=== PATIENT | female | born 1960 | race Caucasian/White ===

== ENCOUNTER 2018-07-24 12:22 | Day surgery (SDC) | payer OTHER ==
[2018-07-23 09:44] VITALS: BMI 20.5
[~2018-07-24 12:22] MED LIST: LACTATED RINGERS 1,000 ML IV SCH; LIDOCAINE 1% 20 ML VIAL (10MG/ML) FOR IV START INTRADERMA PRN
[2018-07-24 13:14] VITALS: TEMP 97.1
[2018-07-24] MEDS ORDERED: fentaNYL (PF) 50 MCG/ML 2 ML AMP ONE (13:22)
[2018-07-24] MEDS ORDERED: LIDOCAINE 1% INJ 10MG/ML (20 ML MDV) ONE (13:22)
[2018-07-24] MEDS ORDERED: PROPOFOL 10 MG/ML 20 ML VIAL IV ONE (13:22)
--- NOTE | 2018-07-24 13:51 | P.PCN ---
Date of Procedure: 07/24/18 Procedure(s) Performed: Procedure: Esophagogastroduodenoscopy and biopsy. Preoperative diagnosis: Reflux symptoms requiring therapy. Postoperative diagnosis: 1. Sliding hiatal hernia with no obvious esophagitis or complicated reflux disease. 2. Mild antral gastritis. 3. Biopsies obtained from the duodenum, antrum and esophagus. Preparation and sedation: Were provided by anesthesia. Brief clinical history: The patient is a 57-year-old female who is scheduled for this evaluation because of reflux symptoms requiring medical therapy. The patient seems to respond to omeprazole with recurrence of her symptoms off medications. No other alarm symptoms. This evaluation is to assess for complicated reflux disease or other pathology. Procedure: With the patient on her left lateral decubitus position and after informed consent and adequate sedation, I passed the Olympus-GIF H190 video upper endoscope through the cricopharyngeus down the esophagus. GE junction was around 40 cm from the incisors and there was a 2 cm sliding hiatal hernia but no obvious esophagitis or complicated reflux disease. The endoscope was then passed into the stomach which was insufflated with air and inspected in detail including the retroflex view in the cardia. There was some mottling and erythema in the antrum but no ulcers or erosions. Pyloric channel did not show any ulcers. Duodenal bulb, post bulbar area and descending duodenum appeared within normal limits. Because of her symptoms, I obtained biopsies from the duodenum, antrum and esophagus then the endoscope was withdrawn. The patient tolerated the procedure well. Plan: The patient was reassured. Will await biopsy results. She will follow-up with you as planned and I will be happy to see in the future if her symptoms change. 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
[2018-07-24 13:54] VITALS: RESP 18
[2018-07-24 14:13] VITALS: BP 137/74; PULSE 68
== END 2018-07-24 14:12 | disposition home or self-care (01) ==
LOC: ORWHC2ENDO 12:22
DX: K29.50 Unspecified chronic gastritis without bleeding (principal); K21.0 Gastro-esophageal reflux disease with esophagitis; K44.9 Diaphragmatic hernia without obstruction or gangrene; F17.200 Nicotine dependence, unspecified, uncomplicated; Z79.899 Other long term (current) drug therapy
CPT/HCPCS: 88305; 43239; J2001; J3010; J2704

== ENCOUNTER → 2018-08-23 | Outpatient (CLI) | payer OTHER ==
--- NOTE | 2018-08-25 09:48 | MM ---
Reason for exam: screening (asymptomatic). Last mammogram was performed 3 years and 2 months ago. History: Patient is postmenopausal. Family history of breast cancer in maternal grandmother at age 40. Physical Findings: A clinical breast exam by your physician is recommended on an annual basis and results should be correlated with mammographic findings. MG 3D Screening Mammo W/Cad Bilateral CC and MLO view(s) were taken. Prior study comparison: June 17, 2015, bilateral MG screening mammo w CAD. March 23, 2008, bilateral digital screening mammogram. There are scattered fibroglandular densities. There is no discrete abnormality. No significant changes when compared with prior studies. ASSESSMENT: Negative, BI-RAD 1 RECOMMENDATION: Routine screening mammogram of both breasts in 1 year.
== END | disposition home or self-care (01) ==
LOC: RADMAMWWP 08:45
PROVIDERS: ATTEND Family Medicine
DX: Z12.31 Encounter for screening mammogram for malignant neoplasm of breast (principal)
CPT/HCPCS: 77063; 77067

== ENCOUNTER 2019-01-08 11:26 | Observation (INO) | payer OTHER ==
[2019-01-08 11:32] VITALS: RESP 18
[2019-01-08 12:52] LABS: Albumin 4.3 g/dL (3.5-5.0); Calcium 9.6 mg/dL (8.4-10.2); Magnesium 2.3 mg/dL (1.6-2.3); Potassium 4.5 mmol/L (3.5-5.1); Total Bilirubin 0.6 mg/dL (0.2-1.3); Total Protein 7.2 g/dL (6.3-8.2)
[2019-01-08 12:53] LABS: Basophils # (A) 0.1 k/uL (0-0.2); Basophils % (A) 1 %; Eosinophils # (A) 0.3 k/uL (0-0.7); Eosinophils % (A) 6 %; HGB 14.5 gm/dL (11.4-16.0); Lymphocytes # (A) 1.7 k/uL (1.0-4.8); Lymphocytes % (A) 30 %; MCH 30.9 pg (25.0-35.0); MCHC 33.6 g/dL (31.0-37.0); MCV 91.8 fL (80.0-100.0); Mean Platelet Volume 7.8; Monocytes # (A) 0.4 k/uL (0-1.0); Monocytes % (A) 8 %; Neutrophils # (A) 2.9 k/uL (1.3-7.7); Neutrophils % (A) 51 %; Platelet Count 223 k/uL (150-450); RBC 4.69 m/uL (3.80-5.40); RDW 14.6 % (11.5-15.5); WBC 5.6 k/uL (3.8-10.6)
[2019-01-08 12:56] LABS: D-Dimer 0.3 mg/L FEU (<0.60); INR 0.9 (<1.2); Partial Thromboplastin Time 26.2 sec (22.0-30.0); Prothrombin Time 9.9 sec (9.0-12.0)
--- NOTE | 2019-01-08 13:04 | XR ---
EXAMINATION TYPE: XR chest 2V DATE OF EXAM: 01/08/2019 COMPARISON: NONE HISTORY: Shortness of breath TECHNIQUE: Frontal and lateral views of the chest are obtained. FINDINGS: Scattered senescent parenchymal changes noted. Hyperinflation compatible with COPD. No evidence for infiltrate. No evidence for atelectasis. Heart size is stable. Mediastinal structures are stable and grossly unremarkable. No evidence for hilar prominence. Degenerative changes dorsal spine. IMPRESSION: 1. No evidence for acute pulmonary disease.
[2019-01-08] MEDS ORDERED: ASPIRIN 81 MG PO STA (13:40)
--- NOTE | 2019-01-08 15:02 | ED ---
Chest Pain HPI - General Chief Complaint: Chest Pain Stated Complaint: chest pain Time Seen by Provider: 01/08/19 12:26 Source: patient, RN notes reviewed Mode of arrival: ambulatory Limitations: no limitations - History of Present Illness Initial Comments: This is a 58-year-old female who presents with complaints of onset of chest pain and dizziness around 11:00 or just prior today. States the pain was sharp 3/10 severity now send him 0.5/10 in severity she states she did have some sweats. She also states that over last week is had intermittent episodes of sweats with no chest pain shortness of breath. She is a former smoker who just quit. She has no known history of heart disease or lung disease no fevers chills cough or phlegm production. MD Complaint: chest pain - Related Data Home Medications Medication Instructions Recorded Confirmed Varenicline [Chantix Starter Pack] 0.5 mg PO BID 01/08/19 01/08/19 buPROPion HCL [Wellbutrin XL] 300 mg PO DAILY 01/08/19 01/08/19 Allergies Allergy/AdvReac Type Severity Reaction Status Date / Time No Known Allergies Allergy Verified 01/08/19 11:47 Review of Systems ROS Statement: Those systems with pertinent positive or pertinent negative responses have been documented in the HPI. ROS Other: All systems not noted in ROS Statement are negative. Past Medical History Past Medical History: No Reported History History of Any Multi-Drug Resistant Organisms: None Reported Past Surgical History: Tonsillectomy Additional Past Surgical History / Comment(s): ankle surgery Past Anesthesia/Blood Transfusion Reactions: No Reported Reaction Past Psychological History: No Psychological Hx Reported Smoking Status: Current every day smoker Past Alcohol Use History: None Reported Past Drug Use History: Marijuana - Past Family History Mother Family Medical History: No Reported History General Exam - General Exam Comments Initial Comments: This a well-developed well-nourished awake alert oriented 3 female Limitations: no limitations General appearance: alert, anxious Head exam: Present: atraumatic, normocephalic, normal inspection Eye exam: Present: normal appearance, PERRL, EOMI. Absent: scleral icterus, conjunctival injection, periorbital swelling ENT exam: Present: normal exam, mucous membranes moist Neck exam: Present: full ROM, other (No stridor JVD or bruits). Absent: tenderness, meningismus, lymphadenopathy Respiratory exam: Present: normal lung sounds bilaterally. Absent: respiratory distress, wheezes, rales, rhonchi, stridor Cardiovascular Exam: Present: regular rate, normal rhythm, normal heart sounds. Absent: systolic murmur, diastolic murmur, rubs, gallop, clicks GI/Abdominal exam: Present: soft, normal bowel sounds. Absent: distended, tenderness, guarding, rebound, rigid Extremities exam: Present: normal inspection, full ROM, normal capillary refill. Absent: tenderness, pedal edema, joint swelling, calf tenderness Back exam: Present: normal inspection Neurological exam: Present: alert, oriented X3, CN II-XII intact Psychiatric exam: Present: normal affect, normal mood Skin exam: Present: warm, dry, intact, normal color. Absent: rash Course Vital Signs 01/08/19 01/08/19 01/08/19 11:29 12:30 13:11 Temperature 98.1 F 98.2 F Pulse Rate 79 65 Respiratory 18 18 Rate Blood Pressure 191/120 144/94 Blood Pressure 166/113 [Right Arm Sitting] Blood Pressure 183/119 [Right Arm Standing] Blood Pressure 165/106 [Right Arm Supine] O2 Sat by Pulse 98 98 Oximetry - Reevaluation(s) Reevaluation #1: 01/08/19 15:02 Reevaluation patient reveals some improvement in her pain no other symptoms reported at this time Chest Pain MDM - MDM I did review the imaging and report no acute findings. I did have a long discussion with patient and her family regarding the findings the presentation is consistent with unstable angina. Patient will be admitted with cardiology consultation. The case is discussed with Dr. graf Critical Care Time Critical Care Time: Yes Critical Care Time: 31 minutes of critical care time which includes initial presentation with history physical labs x-rays multiple reevaluation the patient discussed with the patient family regarding findings discussion with the admitting physician admission orders and documentation of the above Disposition Clinical Impression: Chest pain, Unstable angina pectoris Disposition: ADMITTED IP TO THIS [facility] Condition: Fair Referrals: Gaurang Wong DO [Primary Care Provider] - 1-2 days
[2019-01-08] MEDS ORDERED: HEPARIN SODIUM,PORCINE 5,000 UNIT/ML 1 ML VIAL IV ONE (15:05)
[2019-01-08] MEDS ORDERED: NITROGLYCERIN SL TABS 0.4 MG TAB SUBLINGUAL PRN (15:05)
[2019-01-08] MEDS ORDERED: HEPARIN SOD,PORK IN 0.45% NACL 25,000 UNIT in 0.45% NACL 1 250ML.BAG IV SCH (15:15)
[2019-01-08] MEDS: SODIUM CHLORIDE 0.9% 1,000 ML IV SCH (15:30)
--- NOTE | 2019-01-08 15:57 | P.HPIM ---
History of Present Illness This is a pleasant 58 years old female with no significant past medical history, she is nicotine dependence and currently cigarette smoker and uses marijuana occasionally. Presents because of chest pain. 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 Currently her chest pain is subsided at 1/10 in severity. No other symptoms currently. She still have some epigastric upset and tenderness Vital signs stable, blood pressure on the high side. CBC, BMP, INR, liver enzymes are within normal limits. Troponin is negative. TSH within normal limits. D-dimer is negative at 0.30. EKG showing sinus rhythm with premature atrial complex. After it of 77 BPM, with QTC [address]-T changes. Chest x-ray: Showing no acute process. Patient used to smoke 1 pack per day and she quit about one month ago because of this in the family. No alcohol and she uses marijuana for recreational reasons. Review of Systems CONSTITUTIONAL: No fever, no malaise, no fatigue. HEENT: No recent visual problems or hearing problems. Denied any sore throat. CARDIOVASCULAR: No orthopnea, PND, no palpitations, no syncope. PULMONARY: No shortness of breath, no cough, no hemoptysis. GASTROINTESTINAL: No diarrhea, no nausea, no vomiting, no abdominal pain. Normoactive bowel sounds. NEUROLOGICAL: No headaches, no weakness, no numbness. HEMATOLOGICAL: Denies any bleeding or petechiae. GENITOURINARY: Denies any burning micturition, frequency, or urgency. MUSCULOSKELETAL/RHEUMATOLOGICAL: Denies any joint pain, swelling, or any muscle pain. ENDOCRINE: Denies any polyuria or polydipsia. Past Medical History Past Medical History: No Reported History History of Any Multi-Drug Resistant Organisms: None Reported Past Surgical History: Tonsillectomy Additional Past Surgical History / Comment(s): ankle surgery Past Anesthesia/Blood Transfusion Reactions: No Reported Reaction Past Psychological History: No Psychological Hx Reported Smoking Status: Current every day smoker Past Alcohol Use History: None Reported Past Drug Use History: Marijuana - Past Family History Mother Family Medical History: No Reported History Medications and Allergies Home Medications Medication Instructions Recorded Confirmed Type Varenicline [Chantix Starter Pack] 0.5 mg PO BID 01/08/19 01/08/19 History buPROPion HCL [Wellbutrin XL] 300 mg PO DAILY 01/08/19 01/08/19 History Allergies Allergy/AdvReac Type Severity Reaction Status Date / Time No Known Allergies Allergy Verified 01/08/19 11:47 Physical Exam Vitals: Vital Signs Temp Pulse Resp BP BP BP BP 01/08/19 15:34 98.8 F 68 18 149/97 01/08/19 13:11 98.2 F 65 18 144/94 01/08/19 12:30 166/113 183/119 165/106 01/08/19 11:29 98.1 F 79 18 191/120 Pulse Ox 01/08/19 15:34 96 01/08/19 13:11 98 01/08/19 12:30 01/08/19 11:29 98 Intake and Output 01/08/19 01/08/19 01/08/19 06:59 14:59 22:59 Other: Weight 79.379 kg GENERAL: The patient is alert and oriented x3, not in any acute distress. Well developed, well nourished. HEENT: Pupils are round and equally reacting to light. EOMI. No scleral icterus. No conjunctival pallor. Normocephalic, atraumatic. No pharyngeal erythema. No thyromegaly. CARDIOVASCULAR: S1 and S2 present. No murmurs, rubs, or gallops. PULMONARY: Chest is clear to auscultation, no wheezing or crackles. ABDOMEN: Soft, nontender, nondistended, normoactive bowel sounds. No palpable organomegaly. MUSCULOSKELETAL: No joint swelling or deformity. EXTREMITIES: No cyanosis, clubbing, or pedal edema. NEUROLOGICAL: Gross neurological examination did not reveal any focal deficits. SKIN: No rashes. No petechiae Results CBC & Chem 7: 01/08/19 11:47 01/08/19 11:47 Assessment and Plan Assessment: Chest pain, rule out cardiac causes. Possible unstable angina Recent history of Nicotine dependence Substance abuse including marijuana Plan: This is a pleasant 58 years old female who presents because of chest pain. Continue with heparin drip and aspirin. Cardiology consult. Serial troponin. Labs and medication were reviewed.. Continue same treatment. Continue with symptomatic treatment. Resume home medication. Monitor lytes and vitals. DVT and GI prophylaxis. Further recommendations of the clinical course of the patient DVT prophylaxis: heparin GI Prophylaxis: Pepcid Prognosis is guarded
[2019-01-08] MEDS: NITROGLYCERIN OINT 1 INCH/GM PACKET TOPICAL SCH ×2 (17:53→23:27)
[2019-01-08] MEDS: PANTOPRAZOLE 40 MG/10 ML VIAL IVP SCH (20:48)
[2019-01-08] MEDS: VARENICLINE 0.5 MG TAB PO SCH (20:48)
[2019-01-08] MEDS ORDERED: FAMOTIDINE 20 MG/2 ML VIAL IV SCH (21:00)
[2019-01-09] MEDS: NITROGLYCERIN OINT 1 INCH/GM PACKET TOPICAL SCH (03:39)
[2019-01-09 06:52] LABS: Basophils # (A) 0.1 k/uL (0-0.2); Basophils % (A) 1 %; Eosinophils # (A) 0.4 k/uL (0-0.7); Eosinophils % (A) 7 %; HCT 41.3 % (34.0-46.0); HGB 13.7 gm/dL (11.4-16.0); Lymphocytes # (A) 1.6 k/uL (1.0-4.8); Lymphocytes % (A) 35 %; MCHC 33.2 g/dL (31.0-37.0); MCV 93.4 fL (80.0-100.0); Mean Platelet Volume 7.1; Monocytes # (A) 0.4 k/uL (0-1.0); Monocytes % (A) 8 %; Neutrophils # (A) 2.1 k/uL (1.3-7.7); Neutrophils % (A) 45 %; Platelet Count 205 k/uL (150-450); RBC 4.42 m/uL (3.80-5.40); WBC 4.7 k/uL (3.8-10.6)
[2019-01-09 07:03] LABS: Cholesterol 230 mg/dL (<200); HDL Cholesterol 61 mg/dL (40-60); LDL Cholesterol,Calculated 144 mg/dL (0-99); Triglycerides 124 mg/dL (<150)
--- NOTE | 2019-01-09 08:12 | CONS ---
CONSULTATION Mrs. Yadav is a 58-year-old female with no prior documented history of coronary artery disease who presented with symptoms of epigastric and lower chest discomfort. She was at work yesterday when she started to complain of discomfort and subsequently became diaphoretic and dyspneic. Her blood pressure was checked at work and was noted to be elevated and she came into the emergency room. She is having some epigastric discomfort at this time. She is average in her exercise tolerance, has no exertional chest discomfort, has no history of significant dyspnea. No dizziness. No palpitation. No syncope. No PND, orthopnea nor peripheral edema. She has no prior cardiac history. Her coronary risk factors are remarkable for prior history of smoking, which she stopped a month ago. She has no history of diabetes, hypertension or hyperlipidemia. MEDICATIONS: Her medication at home include Chantix and Wellbutrin that she started recently. REVIEW OF SYSTEMS: RESPIRATORY SYSTEM: She has history of prior chronic tobacco use, but no recent wheezing or cough. GI SYSTEM: She has history of hiatal hernia, but no recent GI bleeding. No peptic ulcer disease. SYSTEM: No dysuria or hematuria. NERVOUS SYSTEM: No history of stroke or seizure. PHYSICAL EXAMINATION: She is a 58-year-old female, alert, oriented, in no apparent distress. Blood pressure 119/81 with the heart rate in the 60s. HEAD: Normocephalic. EYES: Sclerae anicteric. NECK: Good carotid upstroke. No bruit. No jugular venous distention. LUNGS: Clear to auscultation. HEART: Regular rate and rhythm. S1, S2. No S3. No S4. No murmur or rub. ABDOMEN: Soft. Mild epigastric tenderness reproducing the pain. No organomegaly. EXTREMITIES: No edema. Intact distal pulses. LAB DATA: Lab data revealed a cholesterol 230, LDL of 144. BUN and creatinine of 15 and 0.92. Troponin less than 0.012. Hemoglobin 13.7. EKG revealed a sinus mechanism, normal axis, rare PACs with minor nonspecific ST-T wave changes. IMPRESSION: 1. Chest discomfort has atypical features for ischemic heart disease probably noncardiac appears to be epigastric in etiology. 2. Prior history of smoking. RECOMMENDATION: I recommend proceeding with a stress echocardiogram and a transthoracic echo. If there is no evidence of abnormality then no further cardiac workup will be needed. Thank you for this consult. We will follow with you. MMODL / IJN: [id number] /
[2019-01-09] MEDS ORDERED: ASPIRIN 325 MG TAB PO SCH (09:00)
[2019-01-09] MEDS ORDERED: buPROPion XL 300 MG TAB.ER.24H PO SCH (09:00)
[2019-01-09] MEDS ORDERED: ASPIRIN 81 MG PO SCH (09:00)
--- NOTE | 2019-01-09 10:22 | ECHOF ---
Referral Reason:cp MEASUREMENTS -------- HEIGHT: 172.7 cm WEIGHT: 79.4 kg BP: RVIDd: 2.2 cm (< 3.3) IVSd: 1.2 cm (0.6 - 1.1) LVIDd: 4.6 cm (3.9 - 5.3) LVPWd: 1.1 cm (0.6 - 1.1) IVSs: 1.9 cm LVIDs: 2.4 cm LVPWs: 1.7 cm LAESV Index (A-L): 13.41 ml/m Ao Diam: 2.7 cm (2.0 - 3.7) AV Cusp: 1.8 cm (1.5 - 2.6) LA Diam: 2.8 cm (2.7 - 3.8) MV EXCURSION: 14.881 mm (> 18.000) MV EF SLOPE: 97 mm/s (70 - 150) EPSS: 0.3 cm MV E Jesus: 0.59 m/s MV DecT: 193 ms MV A Jesus: 0.69 m/s MV E/A Ratio: 0.86 RAP: 15.00 mmHg RVSP: 47.12 mmHg TAPSE: 27.33 mm FINDINGS -------- Sinus rhythm. This was a technically good study. The left ventricular size is normal. There is mild concentric left ventricular hypertrophy. Overa ll left ventricular systolic function is normal with, an EF between 55 - 60 %. The diastolic fillin g pattern is normal for the age of the patient 7.23. The right ventricle is normal in size. The right ventricular systolic function is normal. Normal LA size by volume 22+/-6 ml/m2. The right atrial size is normal. Interatrial and interventricular septum intact. The aortic valve is trileaflet, and appears structurally normal. No aortic stenosis or regurgitation. The mitral valve is normal. Mild mitral regurgitation is present. The tricuspid valve appears structurally normal. Moderate tricuspid regurgitation present. There is mild pulmonary hypertension. The right ventricular systolic pressure, as measured by Doppler, is 47.12mmHg. Possible TV prolapse There is no pulmonic regurgitation present. The aortic root size is normal. The inferior vena cava is mildly dilated. All pulmonary veins appear normal. The flow patterns, measured by Doppler, appear normal. Echo free space indicative of a pericardial fat pad. CONCLUSIONS -------- 1. Sinus rhythm. 2. This was a technically good study. 3. The left ventricular size is normal. 4. There is mild concentric left ventricular hypertrophy. 5. Overall left ventricular systolic function is normal with, an EF between 55 - 60 %. 6. The diastolic filling pattern is normal for the age of the patient 7.23 7. Normal LA size by volume 22+/-6 ml/m2. 8. The aortic valve is trileaflet, and appears structurally normal. No aortic stenosis or regurgitati on. 9. The mitral valve is normal. 10. Mild mitral regurgitation is present. 11. Moderate tricuspid regurgitation present. 12. There is mild pulmonary hypertension. 13. Possible TV prolapse 14. There is no pulmonic regurgitation present. 15. The aortic root size is normal. 16. The inferior vena cava is mildly dilated. 17. All pulmonary veins appear normal. 18. The flow patterns, measured by Doppler, appear normal. 19. Echo free space indicative of a pericardial fat pad. HAMMER SMITH: Elizabeth Fontaine RDCS
[2019-01-09] MEDS: PANTOPRAZOLE 40 MG/10 ML VIAL IVP SCH (10:55)
[2019-01-09] MEDS: VARENICLINE 0.5 MG TAB PO SCH (10:55)
--- NOTE | 2019-01-09 12:45 | ECHOS ---
STRESS ECHOCARDIOGRAM INDICATIONS: Chest pain. MEDICATIONS: BASELINE HEART RATE: 80 BASELINE BLOOD PRESSURE: 185/92 MAXIMUM HEART RATE: 144 MAXIMUM BLOOD PRESSURE: 185/91 85% MPHR: 137 100% MPHR: 161 METS: 7.7 MAXIMUM STAGE REACHED: III TOTAL EXERCISE TIME: 7 minutes 42 seconds CLINICAL INFORMATION: Baseline rhythm is a sinus mechanism, rate of 80, normal axis and intervals, rare PACs. Baseline blood pressure 185/92 mmHg. Patient exercised on Johnny protocol for 7 minutes 42 seconds reaching a peak rate 144 beats per minute, which is equal to 89% maximum predicted heart rate. Peak blood pressure 185/91 mmHg. Test was terminated secondary to fatigue. There was no chest pain. Electrocardiograph monitoring revealed no evidence of diagnostic ischemic ST deviation. Baseline echocardiogram revealed normal wall thickness and motion. At peak exercise, there was normal wall motion augmentation with no hypokinesis or dyskinesis. CONCLUSION: 1. Average exercise tolerance with occasional PACs and no evidence of exercise induced ischemia. 2. Normal stress echocardiogram with no evidence of stress induced ischemia. MMODL / IJN: [id number] /
[2019-01-09 15:25] VITALS: BP 117/77; PULSE 61; TEMP 97.6
[2019-01-09] MEDS: SODIUM CHLORIDE 0.9% 1,000 ML IV SCH (16:07)
[2019-01-10] MEDS ORDERED: PANTOPRAZOLE 40 MG TABLET PO SCH (07:30)
--- NOTE | 2019-01-10 08:02 | P.DS ---
Providers Date of admission: 01/08/19 15:05 Attending physician: Omar Shields MD Consults: 01/08/19 15:05 Consult Physician Urgent Consulting Provider: Alejandro Velasquez Consult Reason/Comments: Chest pain Do you want consulting provider notified?: Yes [facility] [place] [facility] Course: Diagnoses: Chest pain, resolved. Rod And Tube Straightener evaluated the patient Recent history of the nicotine dependence substance abuse including marijuana Recent history of gastritis He had total hernia Hospital course: This is a pleasant 58 years old female with no significant past medical history, she is nicotine dependence and currently cigarette smoker who quit about one month ago and uses marijuana occasionally. Presents because of chest pain. Patient has been evaluated by bow stapler, she was treated symptomatically he underwent stress test which was negative:no stress induced ischemia Patient chest pain has completely resolved and she is back to her baseline. on the day of discharge she returned to her baseline with no chest pain, no dyspnea, no change in urine or bowel habit , no nausea or vomiting , she is tolerating diet well . no fever. She still complaining of from mild epigastric discomfort and tenderness, patient says that she had EGD done for her last july by Dr. Gonzalez and she has been told she has mild gastritis and hiatal hernia and currently she is on omeprazole at home twice daily. No nausea vomiting and she is tolerating diet well. Normal bowel movement. No change in urine habits. No fever. Patient also denies chest pain and dyspnea. No dizziness. Patient was cleared by bow stapler for discharge Problems and management plan were discussed with the patient and he verbalized understanding and acceptance Patient was found stable and can be discharged home however he needs follow-up as an outpatient. Patient was instructed to follow up with PCP within one week and patient agrees. Also patient was instructed to follow up with her bow stapler and gastrointestinal in 2 weeks and she agrees. Patient's was instructed to keep using her omeprazole at home and she agrees as well. pt agrees with appointment made for her pcp and states she will follow up Gen: patient is a AAOx3, no distress CVS: S1-S2, RRR, no murmur Lungs: B/L CTA, no wheezing Abdomen: soft, no distention, no tenderness, positive bowel sounds Extremity: no leg edema or induration Time spent more than 35 minutes Patient Condition at Discharge: Fair Plan - Discharge Summary New Discharge Prescriptions: New Nitroglycerin Sl Tabs [Nitrostat] 0.4 mg SUBLINGUAL Q5M PRN #20 tab PRN Reason: Chest Pain Aspirin 81 mg PO DAILY 30 Days #30 chew Pantoprazole [Protonix] 40 mg PO AC-BRKFST #30 tablet. Continue buPROPion HCL [Wellbutrin XL] 300 mg PO DAILY Varenicline [Chantix Starter Pack] 0.5 mg PO BID Discharge Medication List Varenicline [Chantix Starter Pack] 0.5 mg PO BID 01/08/19 [History] buPROPion HCL [Wellbutrin XL] 300 mg PO DAILY 01/08/19 [History] Aspirin 81 mg PO DAILY 30 Days #30 chew 01/09/19 [Rx] Nitroglycerin Sl Tabs [Nitrostat] 0.4 mg SUBLINGUAL Q5M PRN #20 tab 01/09/19 [Rx] Pantoprazole [Protonix] 40 mg PO AC-BRKFST #30 tablet. 01/09/19 [Rx] Follow up Appointment(s)/Referral(s): Kareem Ruiz MD [STAFF PHYSICIAN] - 1 Week (pt to call office for follow up appointment.) Shey Hagen MD [STAFF PHYSICIAN] - 1 Week (gastro-enterologist ) Gaurang Wong DO [Primary Care Provider] - 01/19/19 10:20 am Patient Instructions/Handouts: Chest Pain (DC) Activity/Diet/Wound Care/Special Instructions: cardiac diet activity is limited till you see your doctor Discharge Disposition: HOME SELF-CARE
== END 2019-01-09 16:05 | disposition home or self-care (01) ==
LOC: EC 11:26 → 1SOBS 15:05
PROVIDERS: ADMIT Internal Medicine; ATTEND Internal Medicine
DX: R07.89 Other chest pain (principal); R10.13 Epigastric pain; R61 Generalized hyperhidrosis; R42 Dizziness and giddiness; R06.00 Dyspnea, unspecified; R03.0 Elevated blood-pressure reading, without diagnosis of hypertension; F12.10 Cannabis abuse, uncomplicated; F19.10 Other psychoactive substance abuse, uncomplicated; Z79.899 Other long term (current) drug therapy; Z87.19 Personal history of other diseases of the digestive system; Z87.891 Personal history of nicotine dependence
CPT/HCPCS: 36415; 71046; 80053; 80061; 83690; 83735; 83880; 84443; 84484; 85025; 85379; 85610; 85730; 93005; 93306; 93351; 94760; 96365; 96366; 96375; 96376; 99291

== ENCOUNTER → 2019-11-24 | Outpatient (CLI) | payer OTHER | END | disposition home or self-care (01) | LOC: LABWHC1 13:48 | PROVIDERS: ATTEND Physician Assistant Medical | DX: Z20.828 Contact with and (suspected) exposure to other viral communicable diseases (principal) | CPT/HCPCS: U0003; C9803 ==

== ENCOUNTER → 2020-01-19 | Outpatient (CLI) | payer OTHER ==
--- NOTE | 2020-01-20 07:37 | XR ---
EXAMINATION TYPE: XR toes RT DATE OF EXAM: 01/19/2020 COMPARISON: 07/09/2012 HISTORY: Pain TECHNIQUE: 2 views submitted FINDINGS: A deformity involving the fifth metatarsal appears to be chronic suggestive of previous bun ionectomy correlate clinically. Chronic appearing deformities of the proximal and middle phalanx fift h digit. There does appear to be intra-articular fracture involving the distal margin of the proximal phalanx fourth digit there is minimal displacement. IMPRESSION: 1. Minimally displaced intra-articular fracture distal margin proximal phalanx fourth digit.
== END | disposition home or self-care (01) ==
LOC: RADXRYALE 16:36
PROVIDERS: ATTEND Family Medicine
DX: S92.531A Displaced fracture of distal phalanx of right lesser toe(s), initial encounter for closed fracture (principal)

== ENCOUNTER → 2021-05-05 | Outpatient (CLI) | payer OTHER ==
--- NOTE | 2021-05-05 15:25 | XR ---
EXAMINATION TYPE: XR thoracic spine complete DATE OF EXAM: 05/05/2021 COMPARISON: None HISTORY: Pain scapular area TECHNIQUE: 3 views thoracic spine FINDINGS: There are 12 thoracic type vertebral bodies. Pedicles are intact. Disc heights are preserve d. Vertebral body heights are preserved. There is a scoliosis in the upper thoracic spine. IMPRESSION: 1. Upper thoracic scoliosis.
== END | disposition home or self-care (01) ==
LOC: RADXRYALE 11:08
PROVIDERS: ATTEND Physician Assistant Medical
DX: M41.9 Scoliosis, unspecified (principal)
CPT/HCPCS: 72072

== ENCOUNTER 2022-05-03 13:56 | Emergency (ER) | payer OTHER ==
[2022-05-03 15:01] LABS: Basophils # (A) 0.1 k/uL (0-0.2); Basophils % (A) 1 %; Eosinophils # (A) 0.3 k/uL (0-0.7); Eosinophils % (A) 3 %; HGB 16.9 gm/dL (11.4-16.0); Lymphocytes % (A) 39 %; MCH 31.2 pg (25.0-35.0); MCV 94.3 fL (80.0-100.0); Mean Platelet Volume 7.5; Monocytes # (A) 0.5 k/uL (0-1.0); Monocytes % (A) 5 %; Neutrophils # (A) 5.2 k/uL (1.3-7.7); Neutrophils % (A) 51 %; Platelet Count 206 k/uL (150-450); RBC 5.41 m/uL (3.80-5.40); RDW 13.1 % (11.5-15.5); WBC 10.1 k/uL (3.8-10.6)
--- NOTE | 2022-05-03 15:15 | XR ---
EXAMINATION TYPE: XR foot complete RT DATE OF EXAM: 05/03/2022 CLINICAL HISTORY: Recent injury April 06 with pain worse over third toe TECHNIQUE: Frontal, lateral, and oblique images of the right foot are obtained. COMPARISON: Right toe x-rays January 19, 2020 FINDINGS: Asymmetric shortening of the right fifth toe is redemonstrated. There is no acute fracture/ dislocation evident in the right foot with particular attention to the third toe. Mild to moderate na rrowing throughout the second through fourth PIP joints and fourth DIP joint. Mild soft tissue swelli ng over the fourth toe. Partial visualization of surgical change in the distal fibula. The overlying soft tissue appears unremarkable. IMPRESSION: There is no acute fracture or dislocation in the right foot.
[2022-05-03 15:32] LABS: African American GFR (CKD) >90 (>60 ml/min/1.73 sqM); Anion Gap 5 mmol/L; Blood Urea Nitrogen 23 mg/dL (7-17); C Reactive Protein <0.5 mg/dL (<1.0); Calcium 9.9 mg/dL (8.4-10.2); Carbon Dioxide 31 mmol/L (22-30); Chloride 103 mmol/L (98-107); Glucose 84 mg/dL (74-99); Non-African American GFR(CKD) 83 (>60 ml/min/1.73 sqM); Potassium 5.2 mmol/L (3.5-5.1); Sodium 139 mmol/L (137-145)
--- NOTE | 2022-05-03 15:38 | ED ---
General Adult HPI - General Chief complaint: Skin/Abscess/Foreign Body Stated complaint: R foot infection, [facility] Time Seen by Provider: 05/03/22 14:16 Source: patient, RN notes reviewed Mode of arrival: ambulatory Limitations: no limitations - History of Present Illness Initial comments: 61-year-old female presents emergency Department chief complaint right foot infection. Patient states she had trauma. Helpful and her foot one month ago. Patient had a hematoma states it is slowly but will to the surface and states that skin is discolored. Patient is a here for evaluation of infection. Patient denies any increasing pain. He states his site is tender to the touch still swollen. - Related Data Home Medications Medication Instructions Recorded Confirmed Citalopram Hydrobromide [CeleXA] 20 mg PO DAILY 05/03/22 05/03/22 Omeprazole 20 mg PO DAILY 05/03/22 05/03/22 Previous Rx's Medication Instructions Recorded Aspirin 81 mg PO DAILY 30 Days #30 chew 01/09/19 Cephalexin [Keflex] 500 mg PO Q6HR #28 cap 05/03/22 Allergies Allergy/AdvReac Type Severity Reaction Status Date / Time No Known Allergies Allergy Verified 05/03/22 15:12 Review of Systems ROS Statement: Those systems with pertinent positive or pertinent negative responses have been documented in the HPI. ROS Other: All systems not noted in ROS Statement are negative. Past Medical History Past Medical History: No Reported History Additional Past Medical History / Comment(s): hernia History of Any Multi-Drug Resistant Organisms: None Reported Past Surgical History: Tonsillectomy Additional Past Surgical History / Comment(s): ankle surgery, hernia, hand saxena rgery (right) Past Anesthesia/Blood Transfusion Reactions: No Reported Reaction Past Psychological History: No Psychological Hx Reported Smoking Status: Current every day smoker Past Alcohol Use History: Occasional Past Drug Use History: Marijuana - Past Family History Mother Family Medical History: No Reported History General Exam Limitations: no limitations General appearance: alert, in no apparent distress Head exam: Present: atraumatic, normocephalic, normal inspection Eye exam: Present: normal appearance, PERRL, EOMI. Absent: scleral icterus, conjunctival injection, periorbital swelling Respiratory exam: Present: normal lung sounds bilaterally. Absent: respiratory distress, wheezes, rales, rhonchi, stridor Cardiovascular Exam: Present: regular rate, normal rhythm, normal heart sounds. Absent: systolic murmur, diastolic murmur, rubs, gallop, clicks Extremities exam: Present: other (Right foot there is swelling on the dorsal aspect there is some prescription changes with surrounding minimal erythema neurovascular intact) Course Vital Signs 05/03/22 14:04 Temperature 97.7 F Pulse Rate 74 Respiratory 20 Rate Blood Pressure 135/85 O2 Sat by Pulse 96 Oximetry Medical Decision Making - Medical Decision Making Was pt. sent in by a medical professional or institution (DORY Bell, [employer]ERAL DISTRICT LAW CLERK, urgent care, hospital, or [place] health care facility...) When possible be specific @ -[No] Did you speak to anyone other than the patient for history (EMS, parent, family, police, friend...)? What history was obtained from this source @ -[No] Did you review nursing and triage notes (agree or disagree)? Why? @ -[I reviewed and agree with nursing and triage notes] Were old charts reviewed (outside hosp., previous admission, EMS record, old EKG, old radiological studies, urgent care reports/EKG's, [place] health care facility records)? Report findings @ -[No old charts were reviewed] Differential Diagnosis (chest pain, altered mental status, abdominal pain women, abdominal pain men, vaginal bleeding, weakness, fever, dyspnea, syncope, headache, dizziness, GI bleed, back pain, seizure, CVA, palpatations, mental health)? @ -Right foot hematoma, cellulitis, foot fracture, osteomyelitis, this is not all inclusive EKG interpreted by me (3pts min.). @ -[None] X-rays interpreted by me (1pt min.). @ -X-rays right foot does not show any acute changes. CT interpreted by me (1pt min.). @ -[None done] U/S interpreted by me (1pt. min.). @ -[None done] What testing was considered but not performed or refused? (CT, X-rays, U/S, labs)? Why? @ -[None] What meds were considered but not given or refused? Why? @ -[None] Did you discuss the management of the patient with other professionals (candie sheets i.e. DORY Bell, [employer] DISTRICT LAW CLERK, lab, RT, psych nurse, social media sr strategy manager, fighting vehicle systems maintainer, teacher, svp chief marketing officer, shoe caser)? Give summary @ -[No] Was smoking cessation discussed for >3mins.? @ -[No] Was critical care preformed (if so, how long)? @ -[No] Were there social determinants of health that impacted care today? How? (Homelessness, low income, unemployed, alcoholism, drug addiction, transpo rtation, low edu. Level, literacy, decrease access to med. care, penitentiary, rehab)? @ -[No] Was there de-escalation of care discussed even if they declined (Discuss DNR or withdrawal of care, Hospice)? DNR status @ -[No] What co-morbidities impacted this encounter? (DM, HTN, Smoking, COPD, CAD, Cancer, CVA, ARF, Chemo, Hep., AIDS, mental health diagnosis, sleep apnea, morbid obesity)? @ -[None] Was patient admitted / discharged? Hospital course, mention meds given and route, prescriptions, significant lab abnormalities, going to OR and other pertinent info. @ -Discharge patient has continuation of hematoma, possible early cellulitic changes. Patient placed on antibiotics will follow-up at the wound center. Undiagnosed new problem with uncertain prognosis? @ -[No] Drug Therapy requiring intensive monitoring for toxicity (Heparin, Nitro, Insulin, Cardizem)? @ -[No] Were any procedures done? @ -[No] Diagnosis/symptom? @ -Right foot cellulitis Acute, or Chronic, or Acute on Chronic? @ -acute Uncomplicated (without systemic symptoms) or Complicated (systemic symptoms)? @ -Uncomplicated Side effects of treatment? @ -[No] Exacerbation, Progression, or Severe Exacerbation? @ -[No] Poses a threat to life or bodily function? How? (Chest pain, USA, NH, pneumonia, PE, COPD, DKA, ARF, appy, cholecystitis, CVA, Diverticulitis, Homicidal, Suicidal, threat to staff... and all critical care pts) @ -[No] Diagnosis/symptom? @ -Foot hematoma Acute, or Chronic, or Acute on Chronic? @ -chronic Uncomplicated (without systemic symptoms) or Complicated (systemic symptoms)? @ -uncomplicated Side effects of treatment? @ -[none] Exacerbation, Progression, or Severe Exacerbation] @ -[no] Poses a threat to life or bodily function? @ -[no] - Lab Data Result diagrams: 05/03/22 14:42 Lab Results 05/03/22 Range/Units 14:42 WBC 10.1 (3.8-10.6) k/uL RBC 5.41 H (3.80-5.40) m/uL Hgb 16.9 H (11.4-16.0) gm/dL Hct 51.0 H (34.0-46.0) % MCV 94.3 (80.0-100.0) fL MCH 31.2 (25.0-35.0) pg MCHC 33.0 (31.0-37.0) g/dL RDW 13.1 (11.5-15.5) % Plt Count 206 (150-450) k/uL MPV 7.5 Neutrophils % 51 % Lymphocytes % 39 % Monocytes % 5 % Eosinophils % 3 % Basophils % 1 % Neutrophils # 5.2 (1.3-7.7) k/uL Lymphocytes # 4.0 (1.0-4.8) k/uL Monocytes # 0.5 (0-1.0) k/uL Eosinophils # 0.3 (0-0.7) k/uL Basophils # 0.1 (0-0.2) k/uL Disposition Clinical Impression: Cellulitis of right foot, Hematoma of right foot Disposition: HOME SELF-CARE Condition: Stable Instructions (If sedation given, give patient instructions): Cellulitis (ED) Additional Instructions: Please return to the Emergency Department if symptoms worsen or any other concerns. Prescriptions: Cephalexin [Keflex] 500 mg PO Q6HR #28 cap Is patient prescribed a controlled substance at d/c from ED?: No Referrals: Gaurang Wong DO [Primary Care Provider] - 1-2 days [facility] [NON-STAFF] - 1-2 days Dmitry Funez DPM [STAFF PHYSICIAN] - 1-2 days Time of Disposition: 15:38
[2022-05-03 16:04] VITALS: BP 138/88; PULSE 88; RESP 18; TEMP 98.3
== END 2022-05-03 16:04 | disposition home or self-care (01) ==
LOC: EC 13:56
DX: S90.31XA Contusion of right foot, initial encounter (principal); L03.115 Cellulitis of right lower limb; F17.200 Nicotine dependence, unspecified, uncomplicated; F12.90 Cannabis use, unspecified, uncomplicated; X58.XXXA Exposure to other specified factors, initial encounter
CPT/HCPCS: 36415; 80048; 85025; 86140; 99283

== ENCOUNTER → 2023-02-21 | Outpatient (CLI) | payer BC ==
--- NOTE | 2023-02-22 08:16 | MM ---
Reason for Exam: Screening (asymptomatic). Last mammogram was performed 4 year(s) and 6 month(s) ago. Patient History: Menarche at age 12. First Full-Term at age 20. Postmenopausal. Maternal grandmother had breast cancer, age 40. Risk Values: Maya 5 year model risk: 1.4%. NCI Lifetime model risk: 6.0%. Prior Study Comparison: 03/23/2008 Bilateral Screening Mammogram, [facility]. 06/17/2015 Bilateral Screening Mammogram, [facility]. 08/23/2018 Bilateral Screening Mammogram, [facility]. Tissue Density: There are scattered fibroglandular densities. Findings: Analyzed By CAD. Pattern appears symmetrical and stable. There is a high density well-circumscribed rounded area within the posterior lower inner aspect right breast 9 cm from the nipple. This appears larger as visualized compared to the prior examinations. Additional workup with ultrasound is recommended. Overall Assessment: Incomplete: need additional imaging evaluation, BI-RAD 0 Management: Diagnostic Breast Ultrasound of the right breast. A negative mammogram report should not preclude additional follow up of suspicious palpable abnormalities. Patient should continue monthly self breast exam. A clinical breast exam by your physician is recommended on an annual basis and results should be correlated with mammographic findings. Electronically signed and approved by: Donny Hyde D.O. Radiologis
== END | disposition home or self-care (01) ==
LOC: RADMAMWWP 08:05
PROVIDERS: ATTEND Family Medicine
DX: Z12.31 Encounter for screening mammogram for malignant neoplasm of breast (principal); Z78.0 Asymptomatic menopausal state; Z80.3 Family history of malignant neoplasm of breast
CPT/HCPCS: 77063; 77067

== ENCOUNTER → 2023-02-27 | Outpatient (CLI) | payer BC ==
--- NOTE | 2023-02-27 12:21 | USB ---
Reason for Exam: Additional evaluation requested from abnormal screening. Patient History: Menarche at age 12. First Full-Term at age 20. Postmenopausal. Maternal grandmother had breast cancer, age 40. Risk Values: Maya 5 year model risk: 1.4%. NCI Lifetime model risk: 6.0%. Technique: Method: Targeted. Prior Study Comparison: 06/17/2015 Bilateral Screening Mammogram, [facility]. 08/23/2018 Bilateral Screening Mammogram, [facility]. 02/21/2023 Bilateral MG 3D screening mammo w/cad, [facility]. Findings: The lower inner quadrant of the right breast, the axilla of the right breast and the retroareolar of the right breast were scanned. Targeted ultrasound right breast 3-6 o'clock position including the subareolar region and axilla. The patient's palpable site 3:00, 10 cm from the nipple, there is a large 2.7 x 2.1 x 1.4 cm oval circumscribed solid hypoechoic mass. There is posterior transmission. A large fibroadenoma is possible. Other etiologies not excluded. The patient indicates that this has doubled in size. No other solid or cystic lesion or axillary lymphadenopathy. Overall Assessment: Suspicious, BI-RAD 4 Management: Ultrasound Core Biopsy of the right breast. Surgical Consultation of the right breast. Given increasing size and patient's desire for excision. Results were given to the patient verbally at the time of exam. Electronically signed and approved by: Omer Macdonald M.D. Radiologist
== END | disposition home or self-care (01) ==
LOC: RADUSWWP 11:48
PROVIDERS: ATTEND Family Medicine
DX: N63.15 Unspecified lump in the right breast, overlapping quadrants (principal); R92.8 Other abnormal and inconclusive findings on diagnostic imaging of breast; Z78.0 Asymptomatic menopausal state; Z80.3 Family history of malignant neoplasm of breast

== ENCOUNTER → 2023-03-07 | Day surgery (SDC) | payer BC ==
--- NOTE | 2023-03-20 09:39 | MM ---
Reason for Exam: Post Procedure Mammogram. Last screening mammogram was performed less than 1 month ago. Patient History: Menarche at age 12. First Full-Term at age 20. Postmenopausal. Maternal grandmother had breast cancer, age 40. Risk Values: Maya 5 year model risk: 1.4%. NCI Lifetime model risk: 6.0%. Prior Study Comparison: 06/17/2015 Bilateral Screening Mammogram, [facility]. 08/23/2018 Bilateral Screening Mammogram, [facility]. 02/21/2023 Bilateral MG 3D screening mammo w/cad, [facility]. Tissue Density: Right: There are scattered fibroglandular densities. Pathology Description: Location: 3 o'clock. Marker Left Behind. Needle Type: Mammotome Cores: 10 Skin Nicks: 1 Gauge: 13 The procedure of ultrasound guided core biopsy was explained to the patient. Benefits, alternatives, and risks were discussed. An informed consent was then obtained. A timeout was performed. The patient was placed in supine positioning for imaging and for the procedure. The overlying skin was prepped and draped in usual sterile fashion. Lidocaine was used as anesthetic into the skin and subcutaneous tissue up to area of concern in the right breast. Under ultrasound guidance, mammotome needle was advanced. A 6 passes were made. However, the sample container. It contains no sample and the device was switched to a [employer] biopsy device. The 12-gauge vacuum assisted biopsy gun device was used to obtain 3 core samples. A biopsy clip was left in lesion. [employer] wing clip core marker was placed. The patient tolerated the procedure well without any immediate complication. The patient was kept in the radiology department for short stay after the procedure and then discharged home in stable condition. Postprocedure mammogram: The patient was transferred to mammography for physician ordered post procedure mammogram for clip placement verification. Impression: Successful ultrasound guided core biopsy of area of concern in the right breast, full pathology results to follow. Recommendations: 1. Recommendations are pending pathology results. Pathology Results: Result: Benign, Epidermal inclusion cyst. RIGHT BREAST, 3:00, 10 CMFN, NEEDLE CORE BIOPSY: Epidermal inclusion cyst and cyst contents. Negative for malignancy. Overall Assessment: Benign Assessment: MG diagnostic mammo RT wo CAD - Right: Benign, BI-RAD 2. Management: Diagnostic Mammogram of the right breast in 6 months. Electronically signed and approved by: Donny Hyde D.O. Radiologis
== END | disposition home or self-care (01) ==
LOC: RADUSWWP 12:07
PROVIDERS: ATTEND Family Medicine
DX: N60.81 Other benign mammary dysplasias of right breast (principal)
CPT/HCPCS: 88305; 77065; 19083; A4648

== ENCOUNTER → 2023-03-28 | Outpatient (CLI) | payer BC ==
--- NOTE | 2023-03-28 14:58 | P.GSHP ---
History of Present Illness H&P Date: 03/28/23 Chief Complaint: mass right breast Gloria is a 62 year old female seen in consultation for DR. Rivera regarding a right breast mass. She had a bilateral mammogrma on 02-21-23 which led to a right breast ultrasound on 02-27-23. This led to a right breast ultrasound which revealed a 2.7 by 2.1 cm lesion for which biopsy was recommended. This was done on 03-07-23 and revealed an epidermal inclusion cyst. She noted a lump in her right breast about two years ago has increased in size. It is not painful. She has never had any surgery on her breast. She is not complaining of any recent trauma or infection in the breast. She is not complaining of any nipple discharge or skin changes. Caffeine: 4 coffee/day nicotine: daily smoker, since 17 < 1/2 PPD chocolate: daily BCP: used them for 30 years stopped at 44 hormones: none Family History: maternal grandmother: breast cancer Hormonal History: menarche: 12 , breast fed: yes, age at first : 17 menopause: 47 Surgical History: right hand hernia ankle tonsil Medical History: none Social History: nicotine: as above alcohol: weekly drugs: Marijuana daily - Constitutional Constitutional: Denies chills, Denies fever - EENT Eyes: denies blurred vision, denies pain Ears: deny: decreased hearing, tinnitus Ears, nose, mouth and throat: Denies headache, Denies sore throat - Breasts Breasts: bilateral: as per HPI - Cardiovascular Cardiovascular: Denies chest pain, Denies shortness of breath - Respiratory Respiratory: Denies cough, Denies 7 - Gastrointestinal Gastrointestinal: Denies abdominal pain, Denies diarrhea, Denies nausea, Denies vomiting - Genitourinary (Female) Genitourinary: Denies dysuria, Denies hematuria - Menstruation Menstruation: Reports postmenopausal - Musculoskeletal Musculoskeletal: Reports myalgias - Integumentary Integumentary: Denies pruritus, Denies rash - Neurological Neurological: Denies numbness, Denies weakness - Psychiatric Psychiatric: Denies anxiety, Denies depression - Endocrine Endocrine: Denies fatigue, Denies weight change - Hematologic/Lymphatic Comment: baby aspirin daily - Allergic/Immunologic Allergic/Immunologic: Reports as per HPI Past Medical History Past Medical History: No Reported History Additional Past Medical History / Comment(s): hernia History of Any Multi-Drug Resistant Organisms: None Reported Past Surgical History: Tonsillectomy Additional Past Surgical History / Comment(s): ankle surgery, hernia, hand surgery (right) Past Anesthesia/Blood Transfusion Reactions: No Reported Reaction Past Psychological History: No Psychological Hx Reported Smoking Status: Current every day smoker Past Alcohol Use History: Occasional Additional Past Alcohol Use History / Comment(s): pt states she quit smoking December 17 Past Drug Use History: Marijuana Additional Drug Use History / Comment(s): daily THC use - Past Family History Mother Family Medical History: No Reported History Medications and Allergies Home Medications Medication Instructions Recorded Confirmed Type Aspirin 81 mg PO DAILY 30 Days #30 chew 01/09/19 03/28/23 Rx Citalopram Hydrobromide [CeleXA] 20 mg PO DAILY 05/03/22 03/28/23 History Omeprazole 20 mg PO DAILY 05/03/22 03/28/23 History Allergies Allergy/AdvReac Type Severity Reaction Status Date / Time No Known Allergies Allergy Verified 03/28/23 14:22 Surgical - Exam - General no distress - Eyes normal ocular movement - Neck trachea midline - Respiratory normal respiratory effort, clear to auscultation - Cardiovascular Rhythm: regular Heart Sounds: normal: S1, S2 - Abdomen Abdomen: soft, non tender, no guarding, no rigid, no rebound - Integumentary normal turgor - Neurologic no disoriented, no combative - Musculoskeletal normal gait - Psychiatric oriented to time, oriented to person, oriented to place, speech is normal, memory intact Breast EXam: BRA: [id number] Inspection: Protuberance upper inner right breast, lateral grade 2/3 ptosis Palpation: Right breast: Multi-positional exam fibrocystic changes, in the upper inner quadrant there is approximately a 2 x 3 cm mass which is not fixed to the chest wall it is close to the area under the skin Right axilla: No adenopathy of concern Left breast: Multi- positional exam fibrocystic changes no dominant masses or nodules of concern Left axilla: No adenopathy of concern Results Mammogram and ultrasound personally reviewed Pathology core biopsy lesion right breast epidermal inclusion cyst Assessment and Plan Assessment: Impression: Epidermal inclusion cyst increasing in size Plan: Removal of epidermal inclusion cyst in the operating room Risk and benefits of the procedure discussed with the patient, risks include but are not limited to bleeding, infection, reaction to the anesthetic. There is also risk the cyst could recur. The patient understands and wishes to proceed. CC: DR. Gtz
[2023-03-28 15:03] VITALS: BP 157/97; PULSE 60; RESP 18; TEMP 97.9
== END ==
LOC: WWCWWP 13:45
PROVIDERS: ATTEND Surgery
DX: L72.0 Epidermal cyst (principal); N63.0 Unspecified lump in unspecified breast; Z80.3 Family history of malignant neoplasm of breast; N60.81 Other benign mammary dysplasias of right breast; F17.210 Nicotine dependence, cigarettes, uncomplicated

== ENCOUNTER → 2023-05-15 | Outpatient (CLI) | payer BC ==
--- NOTE | 2023-05-15 13:10 | P.PN ---
Subjective Progress Note Date: 05/15/23 Principal diagnosis: mass right breast mass right breast Gloria is a 62 year old female seen in consultation for DR. Rivera regarding a right breast mass. She had a bilateral mammogrma on 02-21-23 which led to a right breast ultrasound on 02-27-23. This led to a right breast ultrasound which revealed a 2.7 by 2.1 cm lesion for which biopsy was recommended. This was done on 03-07-23 and revealed an epidermal inclusion cyst. She noted a lump in her right breast about two years ago has increased in size. It is not painful. She has never had any surgery on her breast. She is not complaining of any recent trauma or infection in the breast. She is not complaining of any nipple discharge or skin changes. Caffeine: 4 coffee/day nicotine: daily smoker, since 17 < 1/2 PPD chocolate: daily BCP: used them for 30 years stopped at 44 hormones: none Family History: maternal grandmother: breast cancer Hormonal History: menarche: 12 , breast fed: yes, age at first : 17 menopause: 47 Surgical History: right hand hernia ankle tonsil Medical History: none Social History: nicotine: as above alcohol: weekly drugs: Marijuana daily - Constitutional Constitutional: Denies chills, Denies fever - EENT Eyes: denies blurred vision, denies pain Ears: deny: decreased hearing, tinnitus Ears, nose, mouth and throat: Denies headache, Denies sore throat - Breasts Breasts: bilateral: as per HPI - Cardiovascular Cardiovascular: Denies chest pain, Denies shortness of breath - Respiratory Respiratory: Denies cough - Gastrointestinal Gastrointestinal: Denies abdominal pain, Denies diarrhea, Denies nausea, Denies vomiting - Genitourinary (Female) Genitourinary: Denies dysuria, Denies hematuria - Menstruation Menstruation: Reports postmenopausal - Musculoskeletal Musculoskeletal: Reports myalgias - Integumentary Integumentary: Denies pruritus, Denies rash - Neurological Neurological: Denies numbness, Denies weakness - Psychiatric Psychiatric: Denies anxiety, Denies depression - Endocrine Endocrine: Denies fatigue, Denies weight change - Hematologic/Lymphatic Comment: baby aspirin daily - Allergic/Immunologic Allergic/Immunologic: Reports as per HPI Past Medical History Past Medical History: No Reported History Additional Past Medical History / Comment(s): hernia History of Any Multi-Drug Resistant Organisms: None Reported Past Surgical History: Tonsillectomy Additional Past Surgical History / Comment(s): ankle surgery, hernia, hand surgery (right) Past Anesthesia/Blood Transfusion Reactions: No Reported Reaction Past Psychological History: No Psychological Hx Reported Smoking Status: Current every day smoker Past Alcohol Use History: Occasional Additional Past Alcohol Use History / Comment(s): pt states she quit smoking December 17 Past Drug Use History: Marijuana Additional Drug Use History / Comment(s): daily THC use - Past Family History Mother Family Medical History: No Reported History Medications and Allergies Home Medications Medication Instructions Recorded Confirmed Type Aspirin 81 mg PO DAILY 30 Days #30 chew 01/09/19 03/28/23 Rx Citalopram Hydrobromide [CeleXA] 20 mg PO DAILY 05/03/22 03/28/23 History Omeprazole 20 mg PO DAILY 05/03/22 03/28/23 History Allergies Allergy/AdvReac Type Severity Reaction Status Date / Time No Known Allergies Allergy Verified 03/28/23 14:22 Objective - Vital Signs Vital signs: Vital Signs Temp 97.8 F 05/15/23 12:59 Pulse 71 05/15/23 12:59 Resp 17 05/15/23 12:59 BP 140/87 05/15/23 12:59 Pulse Ox 97 05/15/23 12:59 FiO2 Intake & Output 05/14/23 05/15/23 05/15/23 18:59 06:59 18:59 Weight 73.028 kg - Constitutional General appearance: Present: cooperative - EENT Eyes: Present: EOMI ENT: Present: hearing grossly normal - Neck Neck: Present: normal ROM - Respiratory Respiratory: bilateral: CTA - Cardiovascular Rhythm: regular Heart sounds: normal: S1, S2 - Gastrointestinal General gastrointestinal: Present: soft - Integumentary Integumentary: Present: normal turgor - Musculoskeletal Musculoskeletal: Present: gait normal - Psychiatric Psychiatric: Present: A&O x's 3, appropriate affect, intact judgment & insight - Additional findings Additional findings: Breast EXam: BRA: 38B Inspection: Protuberance upper inner right breast, lateral grade 2/3 ptosis Palpation: Right breast: Multi-positional exam fibrocystic changes, in the upper inner quadrant there is approximately a 2 x 3 cm mass which is not fixed to the chest wall it is close to the area under the skin Right axilla: No adenopathy of concern Left breast: Multi- positional exam fibrocystic changes no dominant masses or nodules of concern Left axilla: No adenopathy of concern Assessment and Plan Assessment: Impression: Epidermal inclusion cyst increasing in size Plan: Removal of right breast epidermal inclusion cyst in the operating room Risk and benefits of the procedure discussed with the patient, risks include but are not limited to bleeding, infection, reaction to the anesthetic. There is also risk the cyst could recur. The patient understands and wishes to proceed. CC: DR. Gtz
[2023-05-15 13:17] VITALS: BP 140/87; PULSE 71; RESP 17; TEMP 97.8
== END ==
LOC: WWCWWP 12:48
PROVIDERS: ATTEND Surgery
DX: L72.0 Epidermal cyst (principal); N60.81 Other benign mammary dysplasias of right breast; F17.210 Nicotine dependence, cigarettes, uncomplicated; F12.90 Cannabis use, unspecified, uncomplicated; Z80.3 Family history of malignant neoplasm of breast; Z79.82 Long term (current) use of aspirin; Z98.890 Other specified postprocedural states

== ENCOUNTER 2023-05-28 07:22 | Day surgery (SDC) | payer BC ==
[~2023-05-28 07:22] MED LIST changes: +HYDROmorphone 0.5 MG/0.5 ML SYRINGE IVP PRN; -LIDOCAINE 1% 20 ML VIAL (10MG/ML) FOR IV START INTRADERMA PRN; +Pre Op ABX Message 1 EACH MISC MISCELLANE ONE; +droPERidol 5 MG/2 ML VIAL IVP ONE
[2023-05-28] MEDS: LACTATED RINGERS 1,000 ML IV ONE (07:32)
[2023-05-28] MEDS: DEXAMETHASONE SOD PHOSPHATE 4 MG/ML 1 ML VIAL IV ONE (07:48)
[2023-05-28] MEDS: LIDOCAINE 1% (10MG/ML) FOR IV START INTRADERMA PRN (07:48)
[2023-05-28] MEDS: ONDANSETRON 4 MG/2 ML VIAL IVP ONE (07:48)
[2023-05-28] MEDS: HEPARIN SODIUM,PORCINE 5,000 UNIT/ML 1 ML VIAL SQ PRN (07:48)
[2023-05-28] MEDS ORDERED: fentaNYL (PF) 50 MCG/ML 2 ML AMP ONE (08:28)
[2023-05-28] MEDS ORDERED: ceFAZolin 1 GM/50 ML BAG (PMX) ONE (08:28)
[2023-05-28] MEDS ORDERED: LIDOCAINE 1% INJ 10MG/ML (20 ML MDV) ONE (08:28)
[2023-05-28] MEDS ORDERED: PROPOFOL 10 MG/ML 20 ML VIAL IV ONE (08:28)
[2023-05-28] MEDS ORDERED: MIDAZOLAM 2 MG/2 ML VIAL ONE (08:28)
[2023-05-28] MEDS: SODIUM CHLORIDE 0.9% 50 ML with ceFAZolin 2,000 MG IV ONE (08:42)
--- NOTE | 2023-05-28 09:11 | P.OP ---
Date of Procedure: 05/28/23 Preoperative Diagnosis: Mass right chest wall upper inner quadrant right breast/probable epidermal inclusion cyst Postoperative Diagnosis: Same Procedure(s) Performed: Excision epidermal inclusion cyst/mass right breast/upper inner quadrant/right chest wall Anesthesia: BERNARDOA Surgeon: Carol Rubio Estimated Blood Loss (ml): 1 IV fluids (ml): 300 Pathology: other (epidermal inclusion cyst) Condition: stable Disposition: same day Indications for Procedure: Enlarging mass right breast/chest wall probable epidermal inclusion cyst Operative Findings: Epidermal inclusion cyst right chest wall/upper inner quadrant right breast Description of Procedure: The patient was taken to the operating room and following induction of anesthesia the right breast chest wall were and draped in a sterile fashion. An incision was made over the palpable abnormality. Directly under the skin and subcutaneous tissue was a wall of an inclusion cyst. This was carefully dissected free and excised. The lesion was approximately 5 cm x 3 cm. After had been incised intact the wound was well-irrigated. After we are sure that hemostasis was attained deep sutures were placed. This was followed by closure of the skin with 4-0 Monocryl. Surgical glue was placed. The patient tolerated the procedure in stable condition. All instrument and sponge counts were correct at the end of the case.
[2023-05-28 09:37] VITALS: TEMP 97.8
[2023-05-28 10:07] VITALS: RESP 16
[2023-05-28 10:36] VITALS: BP 119/77; PULSE 58
== END 2023-05-28 10:46 | disposition home or self-care (01) ==
LOC: OR 07:22
PROVIDERS: ATTEND Surgery
DX: L72.0 Epidermal cyst (principal)
CPT/HCPCS: 88304; 19120; J2250; J1644; J1100; J2405; J0690 ×2; J2001; J3010; J2704

== ENCOUNTER → 2023-05-30 | Outpatient (CLI) | payer BC ==
--- NOTE | 2023-05-30 08:50 | P.PN ---
Subjective Progress Note Date: 05/30/23 Principal diagnosis: Excision of mass right breast Gloria is a 62-year-old female status post excision of mass in her right breast and 05-15-2023. She called with a complaint of some erythema under the breast at a site remote from the excision site. An has come in today for this to be evaluated. He states that the area of erythema was present and painful when she went home. 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 Objective - Integumentary Integumentary Comment(s): incision clean and dry healing well Under the breast there is approximately an 8 cm linear area of erythema which appears to be consistent with where the drape was present Superior to this there is a question of a beginning of a fungal infection Assessment and Plan Assessment: Impression: Excoriation near area of drape placement under the right breast Question beginning of fungal infection under the right breast Plan: Neosporin to area of excoriation which is believed to be related to the tape Questionable fungal infection to be treated with nystatin Patient to follow-up in 2 days
--- NOTE | 2023-05-30 08:57 | P.PN ---
Progress Note - Text Progress Note Date: 05/30/23 To Whom it may Concern: Gloria Yadav is status post surgery on 05-28-23. She is not released to return to work at this time, she will be seen and evaluated with a go back to work date anticipated to be 06-03-23. Carol Rubio M.D.
[2023-05-30 09:28] VITALS: BP 150/103; PULSE 69; RESP 17; TEMP 98.3
== END ==
LOC: WWCWWP 08:22
PROVIDERS: ATTEND Surgery
DX: S20.111A Abrasion of breast, right breast, initial encounter (principal); N63.10 Unspecified lump in the right breast, unspecified quadrant; L53.9 Erythematous condition, unspecified; L08.9 Local infection of the skin and subcutaneous tissue, unspecified; F12.90 Cannabis use, unspecified, uncomplicated; F17.200 Nicotine dependence, unspecified, uncomplicated; Z98.890 Other specified postprocedural states; Z79.82 Long term (current) use of aspirin; X58.XXXA Exposure to other specified factors, initial encounter

== ENCOUNTER → 2023-06-06 | Outpatient (CLI) | payer BC ==
[2023-06-06 14:00] VITALS: BP 160/97; PULSE 64; RESP 15; TEMP 98.2
--- NOTE | 2023-06-06 14:11 | P.PN ---
Progress Note - Text Progress Note Date: 06/06/23 Gloria is post-op excision of a right breast epidermal inclusion cyst on 05-28-23. She has done well post op. You look great she is healing well at this time. She did have a reaction to the drapes which is resolved. Examination: Incision clean and dry Reaction to the date drapes appears to be resolving Plan: Repeat right breast mammogram in 6 months with examination at that time CC: Dr. Gtz
== END ==
LOC: WWCWWP 13:39
PROVIDERS: ATTEND Surgery
DX: L72.0 Epidermal cyst (principal); F12.90 Cannabis use, unspecified, uncomplicated; F17.200 Nicotine dependence, unspecified, uncomplicated; Z98.890 Other specified postprocedural states; Z79.82 Long term (current) use of aspirin

== ENCOUNTER 2024-03-11 17:43 | Emergency (ER) | payer BC ==
--- NOTE | 2024-03-11 18:02 | ED ---
General Adult HPI - General Source: patient, RN notes reviewed Mode of arrival: ambulatory Limitations: no limitations <Madeleine Jimenez - Last Filed: 03/11/24 18:00> - General Source: patient, RN notes reviewed, old records reviewed Mode of arrival: ambulatory Limitations: no limitations - History of Present Illness -: days(s) Location: head Severity scale (1-10): 7 Quality: aching, sharp Consistency: constant Improves with: none Worsens with: none Associated Symptoms: loss of appetite, nausea/vomiting Treatments Prior to Arrival: none <Darnell Krause - Last Filed: 03/20/24 09:42> - General Chief complaint: Headache Stated complaint: high BP/headache Time Seen by Provider: 03/11/24 17:55 - History of Present Illness Initial comments: Quick note: 63-year-old female presents to the emergency department for evaluation of left-sided headache. Patient was sent in by urgent care. She was noted to have elevated blood pressure at . She denies history of high blood pressure. Patient reports headache on the left side of her head. Patient states that she has never had headache like this before. She reports pain 8 out of 10. (Madeleine Jimenez) This is a 63-year-old female to ER for headache left-sided headache sent in from urgent care for high blood pressure and headache (Darnell Krause) - Related Data Home Medications Medication Instructions Recorded Confirmed Citalopram Hydrobromide [CeleXA] 20 mg PO QAM 05/03/22 06/06/23 Omeprazole 20 mg PO QAM 05/03/22 06/06/23 buPROPion HCL [buPROPion HCL SR] 150 mg PO QAM 05/24/23 06/06/23 Previous Rx's Medication Instructions Recorded Aspirin 81 mg PO DAILY 30 Days #30 chew 01/09/19 HYDROcodone/APAP 5-325MG [[place] 5] 1 - 2 each PO Q6HR PRN #10 tab 05/28/23 Nystatin/Triamcin 1 applic TOPICAL BID #30 gram 05/30/23 [Nystatin-Triamcinolone Cream] Allergies Allergy/AdvReac Type Severity Reaction Status Date / Time No Known Allergies Allergy Verified 03/11/24 17:55 Review of Systems ROS Other: All systems not noted in ROS Statement are negative. <Madeleine Jimenez - Last Filed: 03/11/24 18:00> ROS Other: All systems not noted in ROS Statement are negative. <Darnell Krause - Last Filed: 03/20/24 09:42> ROS Statement: Those systems with pertinent positive or pertinent negative responses have been documented in the HPI. Past Medical History Past Medical History: No Reported History Additional Past Medical History / Comment(s): he History of Any Multi-Drug Resistant Organisms: None Reported Past Surgical History: Tonsillectomy Additional Past Surgical History / Comment(s): ankle surgery, hernia, hand surgery (right) Past Anesthesia/Blood Transfusion Reactions: No Reported Reaction Past Psychological History: No Psychological Hx Reported Smoking Status: Current every day smoker Past Alcohol Use History: Occasional Past Drug Use History: Marijuana - Past Family History Mother Family Medical History: No Reported History <Madeleine Jimenez - Last Filed: 03/11/24 18:00> General Exam Limitations: no limitations <Madeleine Jimenez - Last Filed: 03/11/24 18:00> General appearance: alert, in no apparent distress Head exam: Present: atraumatic, normocephalic, normal inspection Eye exam: Present: normal appearance, PERRL, EOMI. Absent: scleral icterus, conjunctival injection, periorbital swelling ENT exam: Present: normal exam, mucous membranes moist Neck exam: Present: normal inspection. Absent: tenderness, meningismus, lymphadenopathy Respiratory exam: Present: normal lung sounds bilaterally. Absent: respiratory distress, wheezes, rales, rhonchi, stridor Cardiovascular Exam: Present: regular rate, normal rhythm, normal heart sounds. Absent: systolic murmur, diastolic murmur, rubs, gallop, clicks GI/Abdominal exam: Present: soft, normal bowel sounds. Absent: distended, tenderness, guarding, rebound, rigid Extremities exam: Present: normal inspection, full ROM, normal capillary refill. Absent: tenderness, pedal edema, joint swelling, calf tenderness Back exam: Present: normal inspection Neurological exam: Present: alert, oriented X3, CN II-XII intact Psychiatric exam: Present: normal affect, normal mood Skin exam: Present: warm, dry, intact, normal color. Absent: rash <Darnell Krause - Last Filed: 03/20/24 09:42> - General Exam Comments Initial Comments: Visual Physical Exam Vital signs reviewed General: Well-appearing, nontoxic, no acute distress. Head: Normocephalic, atraumatic Eyes: PERRLA, EOMI ENT: Airway patent Chest: Nonlabored breathing Skin: No visual rash, normal skin tone Neuro: Alert and oriented 3 Musculoskeletal: No gross abnormalities (Madeleine Jimenez) Course <Darnell Krause - Last Filed: 03/20/24 09:42> Vital Signs 03/11/24 03/11/24 03/11/24 17:55 18:58 20:42 Temperature 98.4 F 98.3 F Pulse Rate 69 62 60 Respiratory 20 18 16 Rate Blood Pressure 161/108 163/96 163/91 O2 Sat by Pulse 97 98 93 L Oximetry - Reevaluation(s) Reevaluation #1: Medical records reviewed (Darnell Krause) Reevaluation #2: Headache is resolved (Darnell Krause) Reevaluation #3: Patient informed of results questions answered (Darnell Krause) Reevaluation #4: Was pt. sent in by a medical professional or institution (, PA, MACHINE TOOL DRESSER, urgent care, hospital, or [facility]...) When possible be specific @ -no Did you speak to anyone other than the patient for history (EMS, parent, family, police, friend...)? What history was obtained from this source @ -no Did you review nursing and triage notes (agree or disagree)? Why? @ -agree Are old charts reviewed (outside hosp., previous admission, EMS record, old EKG, old radiological studies, urgent care reports/EKG's, [facility] records)? Report findings @ -yes Differential Diagnosis (chest pain, altered mental status, abdominal pain women, abdominal pain men, vaginal bleeding, weakness, fever, dyspnea, syncope, headache, dizziness, GI bleed, back pain, seizure, CVA, palpatations, mental health, musculoskeletal)? @ -prior EKG interpreted by me (3pts min.). @ -yes X-rays interpreted by me (1pt min.). @ -yes negative for acute disease CT interpreted by me (1pt min.). @ -no U/S interpreted by me (1pt. min.). @ -no What testing was considered but not performed or refused? (CT, X-rays, U/S, labs)? Why? @ -none What meds were considered but not given or refused? Why? @ -none Did you discuss the management of the patient with other professionals (professionals i.e. , PA, MACHINE TOOL DRESSER, lab, RT, psych nurse, high school social studies tutor, gift manager, teacher, environmental compliance officer, case finisher)? Give summary @ -no Was smoking cessation discussed for >3mins.? @ -no Was critical care preformed (if so, how long)? @ -no Were there social determinants of health that impacted care today? How? (Homelessness, low income, unemployed, alcoholism, drug addiction, transportation, low edu. Level, literacy, decrease access to med. care, fpc, rehab)? @ -none Was there de-escalation of care discussed even if they declined (Discuss DNR or withdrawal of care, Hospice)? DNR status @ -no What co-morbidities impacted this encounter? (DM, HTN, Smoking, COPD, CAD, Cancer, CVA, ARF, Chemo, Hep., AIDS, mental health diagnosis, sleep apnea, morbid obesity)? @ -none Was patient admitted / discharged? Hospital course, mention meds given and route, prescriptions, significant lab abnormalities, going to OR and other pertinent info. @ - Undiagnosed new problem with uncertain prognosis? @ -no Drug Therapy requiring intensive monitoring for toxicity (Heparin, Nitro, Insulin, Cardizem)? @ -no Were any procedures done? @ -no Diagnosis/symptom? @ - Acute, or Chronic, or Acute on Chronic? @ -Acute Uncomplicated (without systemic symptoms) or Complicated (systemic symptoms)? @ -Complicated Side effects of treatment? @ -no Exacerbation, Progression, or Severe Exacerbation? @ -exacerbation Poses a threat to life or bodily function? How? (Chest pain, [place], [place], pneumonia, PE, COPD, DKA, ARF, appy, cholecystitis, CVA, Diverticulitis, Homicidal, Suicidal, threat to staff... and all critical care pts) @ -yes (Darnell Krause) Reevaluation #5: Differential Headache: Migraine, tension, cluster, carbon monoxide, central venous thrombosis, pension karma temporal arteritis, acute closure glaucoma, intercranial hemorrhage, mastoiditis, sinusitis, head injury, this is not meant to be an all-inclusive list. (Darnell Krause) Medical Decision Making <Madeleine Jimenez - Last Filed: 03/11/24 18:00> - Lab Data Result diagrams: 03/11/24 18:14 03/11/24 18:14 - Radiology Data Radiology results: report reviewed (CT brain CT COW negative for acute disease), image reviewed <Darnell Krause - Last Filed: 03/20/24 09:42> - Medical Decision Making Quick note preformed and electronically signed by Madeleine Jimenez PA-C (Madeleine Jimenez) - Lab Data Lab Results 03/11/24 03/11/24 Range/Units 18:14 18:14 WBC 10.6 (3.8-10.6) k/uL RBC 5.08 (3.80-5.40) m/uL Hgb 15.8 (11.4-16.0) gm/dL Hct 48.8 H (34.0-46.0) % MCV 96.1 (80.0-100.0) fL MCH 31.2 (25.0-35.0) pg MCHC 32.4 (31.0-37.0) g/dL RDW 12.9 (11.5-15.5) % Plt Count 205 (150-450) k/uL MPV 7.4 Neutrophils % 43 % Lymphocytes % 46 % Monocytes % 5 % Eosinophils % 2 % Basophils % 1 % Neutrophils # 4.6 (1.3-7.7) k/uL Lymphocytes # 4.9 H (1.0-4.8) k/uL Monocytes # 0.5 (0-1.0) k/uL Eosinophils # 0.3 (0-0.7) k/uL Basophils # 0.1 (0-0.2) k/uL Sodium 134 L (137-145) mmol/L Potassium 4.4 (3.5-5.1) mmol/L Chloride 102 (98-107) mmol/L Carbon Dioxide 27 (22-30) mmol/L Anion Gap 5 mmol/L BUN 18 H (7-17) mg/dL Creatinine 0.89 (0.52-1.04) mg/dL Est GFR (CKD-EPI)AfAm 79 (>60 ml/min/1.73 sqM) Est GFR (CKD-EPI)NonAf 69 (>60 ml/min/1.73 sqM) Glucose 98 (74-99) mg/dL Calcium 9.4 (8.4-10.2) mg/dL Total Bilirubin 0.8 (0.2-1.3) mg/dL AST 27 (14-36) U/L ALT 23 (4-34) U/L Alkaline Phosphatase 100 (38-126) U/L Total Protein 7.4 (6.3-8.2) g/dL Albumin 4.6 (3.5-5.0) g/dL Disposition <Madeleine Jimenez - Last Filed: 03/11/24 18:00> Is patient prescribed a controlled substance at d/c from ED?: No <Darnell Krause - Last Filed: 03/20/24 09:42> Clinical Impression: Migraine headache, Headache Disposition: HOME SELF-CARE Condition: Good Instructions (If sedation given, give patient instructions): Acute Headache (ED) Referrals: None,Stated [Primary Care Provider] - 1-2 days
[2024-03-11 18:37] LABS: ALT 23 U/L (4-34); AST 27 U/L (14-36); African American GFR (CKD) 79 (>60 ml/min/1.73 sqM); Albumin 4.6 g/dL (3.5-5.0); Alkaline Phosphatase 100 U/L (38-126); Anion Gap 5 mmol/L; Blood Urea Nitrogen 18 mg/dL (7-17); Calcium 9.4 mg/dL (8.4-10.2); Carbon Dioxide 27 mmol/L (22-30); Chloride 102 mmol/L (98-107); Glucose 98 mg/dL (74-99); Non-African American GFR(CKD) 69 (>60 ml/min/1.73 sqM); Potassium 4.4 mmol/L (3.5-5.1); Sodium 134 mmol/L (137-145); Total Bilirubin 0.8 mg/dL (0.2-1.3); Total Protein 7.4 g/dL (6.3-8.2)
[2024-03-11 18:42] LABS: Basophils # (A) 0.1 k/uL (0-0.2); Basophils % (A) 1 %; Eosinophils # (A) 0.3 k/uL (0-0.7); Eosinophils % (A) 2 %; HCT 48.8 % (34.0-46.0); HGB 15.8 gm/dL (11.4-16.0); Lymphocytes # (A) 4.9 k/uL (1.0-4.8); Lymphocytes % (A) 46 %; MCH 31.2 pg (25.0-35.0); MCHC 32.4 g/dL (31.0-37.0); MCV 96.1 fL (80.0-100.0); Mean Platelet Volume 7.4; Monocytes # (A) 0.5 k/uL (0-1.0); Monocytes % (A) 5 %; Neutrophils # (A) 4.6 k/uL (1.3-7.7); Neutrophils % (A) 43 %; Platelet Count 205 k/uL (150-450); RBC 5.08 m/uL (3.80-5.40); RDW 12.9 % (11.5-15.5); WBC 10.6 k/uL (3.8-10.6)
[2024-03-11 19:00] VITALS: TEMP 98.3
--- NOTE | 2024-03-11 19:35 | CT ---
EXAMINATION TYPE: CT brain wo con DATE OF EXAM: 03/11/2024 6:49 PM COMPARISON: None available.. CLINICAL INDICATION: Female, 63 years old with history of Headache, hypertension, headache TECHNIQUE: Brain: Axial CT images of the brain were obtained with coronal and sagittal reformats created and rev iewed. Contrast used: None. Oral contrast used: None. CT DLP: 1221.4 mGycm, Automated exposure control for dose reduction was used. FINDINGS: Brain: No acute intracranial hemorrhage, midline shift or some mass effect. Ventricles and sulci appear with in normal limits. No sizable axial axial fluid collection. Bang-white matter differentiation appears to be preserved. Basal cisterns are patent. The acetabular fracture. No scalp hematoma. Paranasal sin uses and mastoid air cells appear patent. IMPRESSION: No acute intracranial process. [facility], , 03/11/2024 7:33 PM
[2024-03-11] MEDS: HYDROmorphone 1 MG/ML 1 ML SYRINGE IVP STA (19:52)
[2024-03-11] MEDS: diphenhydrAMINE 50 MG/ML 1 ML VIAL IVP STA (19:52)
[2024-03-11] MEDS: PROCHLORPERAZINE INJ 10 MG/2 ML VIAL IVP STA (19:53)
--- NOTE | 2024-03-11 19:58 | CT ---
EXAMINATION TYPE: CT angio COW [place] DATE OF EXAM: 03/11/2024 7:38 PM COMPARISON: And a CT head study dated 03/11/2024.. CLINICAL INDICATION: Female, 63 years old with history of ortiz; PHH, hypertension, headache TECHNIQUE: CT angio COW [place] Axially acquired helical CT angiogram was obtained. Axial im ages are supplemented with 3D reconstructions which were post-processed at an independent workstation . NASCET criteria used. Contrast used:65 mL of Isovue 370 with IV Contrast, none CT DLP: 661.9 mGycm, Automated exposure control for dose reduction was used. FINDINGS: Vertebral arteries: The vertebral arteries are patent. Vertebral artery dominance: Codominant Basilar artery: The basilar artery is intact. The basilar artery bifurcation is normal. Internal Carotid arteries: The cervical, petrous, cavernous and supraclinoid segments are normal. ICNTHIA: Patent with no evidence of aneurysm. ACOM: Present without evidence of aneurysm. MCA: Patent with no evidence of aneurysm. AQUATICS LIFEGUARD: Patent with no evidence of aneurysm. PCOM: Absent bilaterally. Dural sinuses: Patent. IMPRESSION: No evidence of high-grade stenosis or intracranial aneurysm. [facility], , 03/11/2024 7:56 PM
[2024-03-11 20:47] VITALS: BP 163/91; PULSE 60; RESP 16
== END 2024-03-11 20:47 | disposition home or self-care (01) ==
LOC: EC 17:43
DX: G43.909 Migraine, unspecified, not intractable, without status migrainosus (principal); F17.200 Nicotine dependence, unspecified, uncomplicated
CPT/HCPCS: 36415; 80053; 85025; 70496; 70450; 99284; 96374; 96375 ×2; J1200; J0780; J1171; Q9967

== ENCOUNTER 2024-06-22 13:07 | Emergency (ER) | payer BC ==
[2024-06-22 13:15] VITALS: TEMP 97.5
--- NOTE | 2024-06-22 13:58 | ED ---
General Adult HPI - General Chief complaint: Extremity Injury, Lower Stated complaint: left ankle injury Time Seen by Provider: 06/22/24 13:20 Source: patient, RN notes reviewed, old records reviewed Mode of arrival: ambulatory Limitations: no limitations - History of Present Illness Initial comments: Is a 63-year-old female complaining of left ankle pain. Patient states she slipped on the ice last night. Patient denies hitting her head or neck. Patient's only complaint is her ankle pain. Patient denies foot pain or knee pain. Patient [place] any other injury - Related Data Home Medications Medication Instructions Recorded Confirmed Citalopram Hydrobromide [CeleXA] 20 mg PO QAM 05/03/22 06/06/23 Omeprazole 20 mg PO QAM 05/03/22 06/06/23 buPROPion HCL [buPROPion HCL SR] 150 mg PO QAM 05/24/23 06/06/23 Previous Rx's Medication Instructions Recorded Aspirin 81 mg PO DAILY 30 Days #30 chew 01/09/19 HYDROcodone/APAP 5-325MG [Chester 5] 1 - 2 each PO Q6HR PRN #10 tab 05/28/23 Nystatin/Triamcin 1 applic TOPICAL BID #30 gram 05/30/23 [Nystatin-Triamcinolone Cream] Allergies Allergy/AdvReac Type Severity Reaction Status Date / Time No Known Allergies Allergy Verified 06/22/24 13:14 Review of Systems ROS Statement: Those systems with pertinent positive or pertinent negative responses have been documented in the HPI. ROS Other: All systems not noted in ROS Statement are negative. Past Medical History Past Medical History: No Reported History Additional Past Medical History / Comment(s): he History of Any Multi-Drug Resistant Organisms: None Reported Past Surgical History: Tonsillectomy Additional Past Surgical History / Comment(s): ankle surgery, hernia, hand surgery (right) Past Anesthesia/Blood Transfusion Reactions: No Reported Reaction Past Psychological History: No Psychological Hx Reported Smoking Status: Current every day smoker Past Alcohol Use History: Occasional Past Drug Use History: Marijuana - Past Family History Mother Family Medical History: No Reported History General Exam - General Exam Comments Initial Comments: GENERAL Patient is well-developed and well-nourished. Patient is in mild distress. EYES Patient's pupils are equal and round. Extraocular motion is intact SKIN Unremarkable NEURO The patient is alert and oriented A&Ox3 PYSCH Patient has normal interpersonal interactions. MUSCULOSKELETAL Left ankle is tender anteriorly and laterally. Limitations: no limitations Course Vital Signs 06/22/24 13:13 Temperature 97.5 F L Pulse Rate 61 Respiratory 20 Rate Blood Pressure 148/97 O2 Sat by Pulse 97 Oximetry Procedures - Orthopedic Splinting/Casting Injury #1 Side: left Lower Extremity Injury Location: short leg Lower Extremity Immobilizer: posterior splint Medical Decision Making - Medical Decision Making Was pt. sent in by a medical professional or institution (DORY Bell, COMMERCIAL HVAC SERVICE TECHNICIAN, urgent care, hospital, or halfway...) When possible be specific @ -No Did you speak to anyone other than the patient for history (EMS, parent, family, police, friend...)? What history was obtained from this source @ -No Did you review nursing and triage notes (agree or disagree)? Why? @ -I reviewed and agree with nursing and triage notes Were old charts reviewed (outside hosp., previous admission, EMS record, old EKG, old radiological studies, urgent care reports/EKG's, halfway records)? Report findings @ -No old charts were reviewed Differential Diagnosis? @ -Differential Musculoskeletal Muscular strain, contusion, ligament sprain, fracture, arthritis, septic arthritis, bursitis, cellulitis, muscle spasm, nerve compression, DVT, arterial occlusion, herpes zoster, electrolyte abnormality, tumor.... This is not meant to be in all inclusive list EKG interpreted by me (3pts min.). @ -As above X-rays interpreted by me (1pt min.). @ -X-ray of the ankle shows a left slightly displaced fibula fracture distally CT interpreted by me (1pt min.). @ -None done U/S interpreted by me (1pt. min.). @ -None done What testing was considered but not performed or refused? (CT, X-rays, U/S, labs)? Why? @ -None What meds were considered but not given or refused? Why? @ -None Did you discuss the management of the patient with other professionals (professionals i.e. DORY Bell, COMMERCIAL HVAC SERVICE TECHNICIAN, lab, RT, psych nurse, social service manager, reinsurance claims analyst, teacher, collection officer, case folder)? Give summary @ -No Was smoking cessation discussed for >3mins.? @ -No Was critical care preformed (if so, how long)? @ -No Were there social determinants of health that impacted care today? How? (Homelessness, low income, unemployed, alcoholism, drug addiction, transportation, low edu. Level, literacy, decrease access to med. care, long-term, rehab)? @ -No Was there de-escalation of care discussed even if they declined (Discuss DNR or withdrawal of care, Hospice)? DNR status @ -No What co-morbidities impacted this encounter? (DM, HTN, Smoking, COPD, CAD, Cancer, CVA, ARF, Chemo, Hep., AIDS, mental health diagnosis, sleep apnea, morbid obesity)? @ -None Was patient admitted / discharged? Hospital course, mention meds given and route, prescriptions, significant lab abnormalities, going to OR and other pertinent info. @ -I placed the patient in an OCL posterior splint and she already has crutches so she will be discharged home to follow-up with orthopedics. Undiagnosed new problem with uncertain prognosis? @ -No Drug Therapy requiring intensive monitoring for toxicity (Heparin, Nitro, Insulin, Cardizem)? @ -No Were any procedures done? @ -No Diagnosis/symptom? @ -Fibular fracture Acute, or Chronic, or Acute on Chronic? @ -Acute Uncomplicated (without systemic symptoms) or Complicated (systemic symptoms)? @ -Uncomplicated Side effects of treatment? @ -No Exacerbation, Progression, or Severe Exacerbation? @ -No Poses a threat to life or bodily function? How? (Chest pain, [place], [place], pneumonia, PE, COPD, DKA, ARF, appy, cholecystitis, CVA, Diverticulitis, Homicidal, [place] kevin, threat to staff... and all critical care pts) @ -No Disposition Clinical Impression: Fibula fracture Disposition: HOME SELF-CARE Condition: Good Instructions (If sedation given, give patient instructions): Ankle Fracture (ED) Additional Instructions: Patient should be nonweightbearing until she follows up with orthopedics Is patient prescribed a controlled substance at d/c from ED?: No Referrals: None,Stated [Primary Care Provider] - 1-2 days Diana Barksdale [Doctor of Osteopathic Medicine] - 1-2 days Time of Disposition: 15:11
--- NOTE | 2024-06-22 14:29 | XR ---
EXAMINATION TYPE: XR ankle complete LT DATE OF EXAM: 06/22/2024 COMPARISON: Left foot radiograph 11/21/2015, left ankle radiograph 07/09/2012 HISTORY: Fall, pain TECHNIQUE: 3 views of the left ankle are submitted for evaluation. FINDINGS: Overlying cast material limits evaluation of fine osseous detail. Acute oblique mildly disp laced fracture of the distal fibular metadiaphysis extending to the level of the ankle joint. No disl ocation. Ankle mortise is intact. Soft tissue swelling over the lateral malleolus. Stable postsurgica l changes involving the fifth metatarsal with a screw and adjacent tiny radiopaque opacity. IMPRESSION: Acute mildly displaced oblique fracture of the distal fibular metadiaphysis. [facility], , 06/22/2024 2:27 PM
[2024-06-22 15:35] VITALS: BP 132/84; PULSE 86; RESP 18
== END 2024-06-22 15:30 | disposition home or self-care (01) ==
LOC: EC 13:07
DX: S82.402A Unspecified fracture of shaft of left fibula, initial encounter for closed fracture (principal); F17.200 Nicotine dependence, unspecified, uncomplicated; W00.0XXA Fall on same level due to ice and snow, initial encounter
CPT/HCPCS: 29515; 99283

== ENCOUNTER 2024-07-01 11:08 | Day surgery (SDC) | payer BC ==
[~2024-07-01 11:08] MED LIST changes: -LACTATED RINGERS 1,000 ML IV SCH; -Pre Op ABX Message 1 EACH MISC MISCELLANE ONE; -droPERidol 5 MG/2 ML VIAL IVP ONE
[2024-07-01] MEDS: IV FLUID CONTINUATION 1,000 ML IV ONE (11:54)
[2024-07-01] MEDS: LACTATED RINGERS 1,000 ML IV SCH (12:29)
[2024-07-01] MEDS: DEXAMETHASONE SOD PHOSPHATE 4 MG/ML 1 ML VIAL IV ONE (12:40)
[2024-07-01] MEDS: ONDANSETRON 4 MG/2 ML VIAL IVP ONE (12:41)
[2024-07-01] MEDS: MIDAZOLAM 2 MG/2 ML VIAL IV ONE (12:55)
[2024-07-01] MEDS ORDERED: GLYCOPYRROLATE 0.2 MG/ML 2 ML VIAL ONE (13:03)
[2024-07-01] MEDS ORDERED: ROPIVACAINE 5 MG/ML 30 ML VIAL ONE ×2 (13:03)
[2024-07-01] MEDS ORDERED: DEXAMETHASONE SOD PHOSPHATE 4 MG/ML 1 ML VIAL ONE ×2 (13:03)
[2024-07-01] MEDS ORDERED: fentaNYL (PF) 50 MCG/ML 2 ML AMP ONE (13:03)
[2024-07-01] MEDS ORDERED: SUCCINYLCHOLINE CHLORIDE 200 MG/10 ML VIAL IV ONE (13:03)
[2024-07-01] MEDS ORDERED: LIDOCAINE 1% INJ 10MG/ML (20 ML MDV) ONE (13:03)
[2024-07-01] MEDS ORDERED: PROPOFOL 10 MG/ML 20 ML VIAL IV ONE (13:03)
[2024-07-01] MEDS ORDERED: PHENYLEPHRINE-0.9% NACL SYG 1,000 MCG/10 ML SYRINGE ONE (13:03)
[2024-07-01] MEDS ORDERED: LIDOCAINE 4% LTA KIT (4 ML) TOPICAL ONE (13:03)
[2024-07-01] MEDS: ceFAZolin 1,000 MG in SODIUM CHLORIDE 0.9% 1,000 ML IRRIGATION ONE (13:22)
[2024-07-01] MEDS: LACTATED RINGERS 1,000 ML IV ONE (13:54)
[2024-07-01 14:12] VITALS: TEMP 97.5
--- NOTE | 2024-07-01 14:27 | P.OP ---
Date of Procedure: 07/01/24 Preoperative Diagnosis: Displaced lateral malleolus fracture left ankle Postoperative Diagnosis: Same Procedure(s) Performed: Open reduction with internal fixation left lateral malleolus fracture Implants: Arthrex 3.0 mm x 130 mm Fibulock nail with 2 to 3.0 mm screws Anesthesia: PAVAN Surgeon: Paul Infante Estimated Blood Loss (ml): 1 Pathology: none sent Condition: stable Disposition: PACU Description of Procedure: Prior to the patient being brought to the op room, anesthesia administered a nerve block on the operative extremity. The patient was brought into the op room and placed on table in the supine position. Timeout was taken to confirm c orrect patient identifiers, correct laterality of surgery, and correct procedure. Once all staff in the room were in agreement with the timeout, the patient was induced and placed under general anesthesia. A well-padded tourniquet was placed on the left thigh and a wedge underneath the left leg. The left leg was prepped and draped in the usual manner. The left leg was exsanguinated, the knee flexed, and the tourniquet inflated to 250 mmHg. Under fluoroscopic visualization, landmarks for the distal tip of the fibula as well as the distal to proximal direction of the fibular shaft was marked on the skin. Then a guidewire was inserted through the skin distal to the tip of the lateral malleolus. Soft tissue dissection was done bluntly down to the tip of the lateral malleolus. The wire was placed at the tip of the lateral malleolus while visualizing under fluoroscopy. The wire was advanced part way and then the ladder was checked to make sure that the trajectory was correct. Once the trajectory was correct the wire was advanced to the fracture line. Fluoroscopy was used to make sure that the wire was still going in the same direction. Then the wire was isolated past the fracture into the shaft of the fibula. The large reamer was then utilized for the distal partial portion. It was placed over the wire and then reamed down to an appropriate depth. Then the long reamer was inserted over the wire and advanced until the hub reached the tip of the lateral malleolus. A reduction forcep was applied over the fracture to keep it aligned during the insertion of the nail. The nail and jig which were assembled on the back table, was inserted into the drill hole and then impacted down to proper depth as indicated under fluoroscopy. The proximal tail lines were then deplo yed until locked. Drill guides were placed to the appropriate holes in the jig for the distal locking screws. Small stab incisions were made through the skin so that the drill guide could lie against the bone. Drilling was done until the medial cortex was reached but not penetrated. Appropriate size screws were then placed through the drill holes and advanced until the head engaged the lateral cortex of the fibula. Final fluoroscopic imaging showed proper placement the hardware as well as as maintained reduction of the fracture. Under live fluoroscopy the ankle was stressed to make sure there is no gapping medially in the joint space or separation of the syndesmosis. None were found. All incisions were thoroughly irrigated with antibiotic saline. The skin closed with saurabh. Arthrex jumpstart and dry sterile dressing were applied to the ankle. The tourniquet released and capillary refill returned all digits of the foot. The patient was placed in a below-knee fracture boot with the ankle joint position. Anesthesia was reversed and the patient was taken recovery with vital signs stable.
--- NOTE | 2024-07-01 14:31 | FL ---
EXAMINATION TYPE: FL guidance operating room, XR ankle complete LT DATE OF EXAM: 07/01/2024 2:03 PM COMPARISON: Pre Operative Images if available both CT/MRI or plain film CLINICAL INDICATION: Female, 63 years old with history of LEFT ANKLE FRACTURE; TECHNIQUE: FL guidance operating room, XR ankle complete LT, multiple fluoroscopic images provided fo r procedure. DAP: 0.05512 mGym2 Gycm2 uGym2 cGycm2 or equivalent. FINDINGS: Fluoroscopic images during internal fixation demonstrate hardware in appropriate position. Hardware a ppears intact. No immediate complication identified. IMPRESSION: 1. No evidence for intraoperative complication. 2. Please see the operative/procedural note for further details. [facility], , 07/01/2024 2:29 PM
[2024-07-01 15:12] VITALS: RESP 16
[2024-07-01] MEDS: HYDROcodone/APAP 5-325MG 1 EACH TAB PO STA (15:31)
[2024-07-01 16:13] VITALS: BP 153/93; PULSE 72
--- NOTE | 2024-07-03 08:48 | P.ANPRN ---
Procedure Note - Anesthesia - Nerve Block Performed Left Popliteal Single Time Out Performed: Yes Date of Procedure: 07/01/24 Procedure Start Time: 12:54 Procedure Stop Time: 12:59 Location of Patient: PreOp Indication: Acute Post-Operative Pain, Requested by Surgeon Sedation Type: Sedate with meaningful contact maintained Preparation: Sterile Prep Position: Left Lateral Needle Types: Pajunk Needle Gauge: 21 Ultrasound used to visualize needle placement: Yes Ultrasound used to observe medication spread: Yes Blood Aspirated: No Pain Paresthesia on Injection Noted: No Resistance on Injection: Normal Image Stored and Saved: Yes Events: Uneventful and Well Tolerated (Ropivacaine 0.5% 20 cc plus dexamethasone 4 mg for 15 minutes, financial services approximately)
== END 2024-07-01 16:15 | disposition home or self-care (01) ==
LOC: OR 11:08
PROVIDERS: ATTEND Podiatrist
DX: S82.62XA Displaced fracture of lateral malleolus of left fibula, initial encounter for closed fracture (principal); K21.9 Gastro-esophageal reflux disease without esophagitis; F17.210 Nicotine dependence, cigarettes, uncomplicated; F32.A Depression, unspecified; Z79.82 Long term (current) use of aspirin; Z79.899 Other long term (current) drug therapy; X58.XXXA Exposure to other specified factors, initial encounter
CPT/HCPCS: 27792; 64445; 73610; C1713; J2250; J0330; J1100; J0690 ×2; J2405; J2003; J3010; J2795; J2704; J2371; J1596